=== PATIENT | male | born 1970 | race Caucasian/White ===

== ENCOUNTER → 2018-12-26 | Outpatient (CLI) | payer BC ==
[~2018-12-26] MED LIST: PHEN300C2 PO
--- NOTE | 2018-12-26 17:46 | CONS ---
Assessment/Plan Assessment/Plan Hospital Course (Demo Recall) 48-year-old male presents with improving knee pain x1 week. 1 week ago when he originally scheduled appointment his knee was significantly more painful. Over the course of the week with rest the pain has significantly improved. He likely has some patellar tendon tendinitis. However with [place] he does have more pain. At this time would like to start with conservative treatment. Like to start the patient on an NSAID regiment with meloxicam. He will also perform self-directed physical therapy at home. He will follow-up PRN. Consultation Date/Type/Reason Admit Date/Time Date of Consultation: December 26, 2018 Reason for Consultation Left knee pain Date/Time of Note DATE: 12/26/18 TIME: 17:22 Hx of Present Illness This is a 40-year-old male with a chief complaint of left knee pain. The pain began approximately 1 week ago. He has history of left knee partial medial m eniscectomy by Dr. Bentley in 2013. He did very well since then. Last week he was walking [place] frequently and just had sharp pain in the anterior aspect of his knee. The pain at that time was rated 7/10. It has now significantly decreased to 2/10. Pain is not radiating to the lower leg. Patient denies complaints of numbness or tingling. The pain is exacerbated by climbing stairs and ambulation. Pain is not relieved by NSAID's. Patient has been taking Aleve on a p.r.n. basis as well as using ice. The patient again notes that he is significantly better over this past week. Denies mechanical sy mptoms. Duration: 1 week Injury: None the specific Walking tolerance: Unlimited Limp: Yes Support: No Swelling: Yes Crepitation: Yes Instability: No Stairs: Uses normally Physical Therapy: No Injections: No NSAIDs: Aleve Prior surgery: Partial medial meniscectomy left knee by Dr. Bentley 2013 Back pain: Yes Hip pain: No Risk of AVN : No Patient denies fever, chills, shortness of breath, chest pain, nausea/vomiting, constipation, diarrhea, numbness, and tingling. Past Medical History Seizures Home Meds Reported Medications Phenytoin* Sodium Extended (Dilantin*) 300 Mg Capsule, 500 MG PO HS, CAP 04/09/14 Allergies: Coded Allergies: No Known Allergies (Verified Allergy, Unknown, 04/09/14) Past Surgical History Left knee partial medial meniscectomy 2013 Dr. Bentley Varicocele Family History Significant Family History: no pertinent family hx Social History Alcohol Use: occasionally Smoking Status: Current every day smoker (Chews) Drug Use: none Exam/Review of Systems Exam Vitals Weight: 180 pound Height: 5 foot 9 inches Temperature: 98.4 Heart Rate: 81 Blood Pressure: 132/81 Respiratory Rate: 18 Exam General: Alert, oriented x3. No Acute Distress. Heart: Regular rate and rhythm. Lungs: No respiratory distress. No accessory muscle use. Musculoskeletal: Left Knee This is a well developed male who is alert, oriented times three and in no apparent distress. Skin is intact over the left knee as well as the lower extremity with no abrasions, lacerations, or ulcerations. Observation of the patient's gait reveals a minimally antalgic gait with No thrust. Frontal plane alignment is neutral. There is no pain on palpation of either joint line. The patient demonstrates grinding anteriorly with ROM. Range of motion: 0 extension to approximately 130 degrees of flexion. Collateral ligament testing reveals no instability with varus or valgus stress at 0 and 30 degrees of flexion. Negative Monika's and negative posterior drawer. Neurovascularly intact with 5/5 EHL/tibialis anterior/gastroc. Sensation intact to light touch in a sural, saphenous, deep peroneal, superficial peroneal, medial and lateral plantar nerve distribution. Palpable, symmetric dorsalis pedis and posterior tibial pulses in both lower extremities. Hip examination normal. Imaging Imaging The patient received a standard set of films today that were personally reviewed. Imaging included a standing bilateral knee AP, PA flexion, merchant views and a dedicated lateral of the affected knee: There is neutral alignment of the knee. There is no loss of joint space in any compartment(s). There is no osteophyte formation. There is no subchondral sclerosis. There are no subchondral cysts. Normal knee x-ray SAUMYA VENTURA MD December 26, 2018 17:32
--- NOTE | 2018-12-26 20:28 | RADRPT ---
PROCEDURE: XR bilateral Knees. CLINICAL INDICATION: Pain TECHNIQUE: 4 views of both knees are available for review. COMPARISON: None available FINDINGS: Right side: There is no acute fracture or dislocation. Joint spaces are maintained. There is no signi ficant joint effusion. The soft tissues are unremarkable. Left side: There is no acute fracture or dislocation. The medial and lateral compartment joint spaces are maintained. There is minimal joint space narrowing with osseous spurring of the lateral patellof emoral compartment. There is no significant joint effusion. The soft tissues are unremarkable. RPTAT: ZNoim IMPRESSION: 1. No acute bony abnormality. 2. Minimal lateral patellofemoral compartment osteoarthrosis of the left knee. .Luci Roa MD, MD Date Time Electronically viewed and signed by .Luci Rao MD, on 12/26/2018 20:27 .T/
== END | disposition home or self-care (01) ==
LOC: HKI 14:14
PROVIDERS: ATTEND Orthopaedic Surgery Adult Reconstructive Orthopaedic Surgery
DX: M25.562 Pain in left knee (principal)
CPT/HCPCS: 73564; G0463